=== PATIENT | female | born 1990 | race Caucasian/White ===

== ENCOUNTER 2017-08-26 10:43 | Outpatient (CLI) | payer OTHER ==
[~2017-08-26] VITALS: Ht 180.3 cm; Wt 93.0 kg
[2017-08-26] MEDS ORDERED: PRENATAL GUMMI1 EACH PO ×2 (11:18→11:20)
[2017-08-26 11:31] LABS: EOSINOPHIL (%) 2.7 % (0-5); EOSINOPHIL COUNT 0.3 K/uL (0-0.3); HEMATOCRIT 34.8 % (36.0-46.0); IMMATURE GRANULOCYTE (%) 0.5 % (0.0-0.7); IMMATURE GRANULOCYTE COUNT 0.1 K/uL; INSTRUMENT ABS NEUTROPHIL CT 6.9 K/uL; LYMPHOCYTE COUNT 2.2 K/uL (1.0-2.8); MCH 30.6 PG (29.0-34.0); MCHC 33.3 G/DL (30.0-36.0); MCV 91.8 FL (83-99); MEAN PLAT.VOLUME 10.1 uM^3 (9.5-12.4); MONOCYTE (%) 6.9 % (3-12); MONOCYTE COUNT 0.7 K/uL (0-0.8); NEUTROPHIL (%) 67.6 % (45-76); NEUTROPHIL COUNT 6.9 K/uL (1.8-6.4); PLATELET COUNT 204 K/uL (156-360); RBC DIS.WIDTH-CV 12.2 % (11.8-14.6); RBC DIS.WIDTH-SD 41.1 % (39-53); RED BLOOD COUNT 3.79 M/uL (3.80-5.20); WHITE BLOOD COUNT 10.1 K/uL (4.1-10.2)
[2017-08-26 11:36] LABS: PROTHROMBIN TIME 11.4 SEC (10.2-12.9)
[2017-08-26 11:39] LABS: PTT 23.5 SEC (25-37)
[2017-08-26 11:43] LABS: CHLORIDE 105 mEq/L (99-109); POTASSIUM 4.3 mEq/L (3.7-5.4); SODIUM 135 mEq/L (136-147)
[2017-08-26 11:45] LABS: GLUCOSE 79 mg/dL (70-99)
[2017-08-26 11:46] LABS: ANION GAP 9 MEQ/L (2-14)
[2017-08-26 11:49] LABS: GFR ESTIMATE (CALCULATED) > 59 mL/min/; UREA NITROGEN (BUN) 6 mg/dL (9-23)
[2017-08-26 11:52] LABS: TROP-I INTERPRETATION NEGATIVE; TROPONIN-I < 0.01 ng/mL (0.0-0.30)
[2017-08-26 13:57] VITALS: BP 118/69
== END 2017-08-26 15:15 | disposition home or self-care (01) ==
LOC: LDRP-OP 10:43 → EME 10:43 → EDSTATUS 13:57 → 2WEST 14:01
PROVIDERS: Emergency Medicine
DX: O26.892 Other specified pregnancy related conditions, second trimester (principal); R07.9 Chest pain, unspecified; M25.511 Pain in right shoulder; M79.601 Pain in right arm; Z3A.24 24 weeks gestation of pregnancy
CPT/HCPCS: 59025; 71010; 80048; 84484; 85025; 85379; 85610; 85730; 93005; 99281; 99285; G0378; J7030

== ENCOUNTER 2018-03-29 15:03 | Emergency (ER) | payer OTHER ==
[~2018-03-29] VITALS: Ht 180.3 cm; Wt 103.0 kg
[~2018-03-29 15:03] MED LIST: PRENATAL GUMMI1 EACH PO
[2018-03-29 15:35] LABS: HEMATOCRIT 41.3 % (36.0-46.0); MCH 30.2 PG (29.0-34.0); MCHC 33.9 G/DL (30.0-36.0); PLATELET COUNT 231 K/uL (156-360); RBC DIS.WIDTH-CV 13.1 % (11.8-14.6); RBC DIS.WIDTH-SD 42.9 % (39-53); RED BLOOD COUNT 4.64 M/uL (3.80-5.20); WHITE BLOOD COUNT 7.9 K/uL (4.1-10.2)
[2018-03-29 15:42] LABS: CHLORIDE 109 mEq/L (99-109); POTASSIUM 3.9 mEq/L (3.7-5.4); SODIUM 139 mEq/L (136-147)
[2018-03-29 15:44] LABS: GLUCOSE 91 mg/dL (70-99)
[2018-03-29 15:45] LABS: D-DIMER ELISA < 150.00 ng/mLDDU (<230)
[2018-03-29 15:47] LABS: CREATININE 0.9 mg/dL (0.6-1.3); GFR ESTIMATE (CALCULATED) > 59 mL/min/
[2018-03-29 15:48] LABS: UREA NITROGEN (BUN) 13 mg/dL (9-23)
[2018-03-29 15:56] LABS: QUANTITATIVE HCG < 4.0 MIU/ML
[2018-03-29] MEDS ORDERED: ZOFRAN ODT8 MG PO (16:24)
[2018-03-29 16:54] VITALS: BP 94/63
== END 2018-03-29 17:03 | disposition home or self-care (01) ==
LOC: EME 15:03
PROVIDERS: Physician Assistant
DX: R07.9 Chest pain, unspecified (principal); R06.02 Shortness of breath; R20.0 Anesthesia of skin; R11.10 Vomiting, unspecified
CPT/HCPCS: 71046; 80048; 84702; 85027; 85379; 93005; 99281; 99284